=== PATIENT | male | born 2000 | race Caucasian/White ===

== ENCOUNTER 2023-04-04 19:46 | Emergency (ER) | payer OTHER ==
[~2023-04-04] VITALS: Ht 177.8 cm; Wt 50.3 kg
[2023-04-05 00:35] VITALS: BP 157/90; TEMP 97.8; O2SAT 100
[2023-04-05] MEDS ORDERED: IBUPROFEN 600MG TAB PO ONE (00:35)
== END 2023-04-05 00:47 | disposition home or self-care (01) ==
LOC: M ED 19:46 → EDBD 19:46 → M ED 04-05 00:47
DX: S80.911A Unspecified superficial injury of right knee, initial encounter (principal); V49.40XA Driver injured in collision with unspecified motor vehicles in traffic accident, initial encounter; Y92.410 Unspecified street and highway as the place of occurrence of the external cause

== ENCOUNTER → 2023-05-13 | Outpatient (CLI) | payer OTHER | LOC: M PLAIMG 13:09 | PROVIDERS: ATTEND Physician Assistant | DX: M25.551 Pain in right hip (principal) ==